=== PATIENT | female | born 1945 | race American Indian/Alaskan Native ===

== ENCOUNTER 2017-02-27 20:26 | Emergency (ER) | payer OTHER ==
[~2017-02-27] VITALS: Ht 152.4 cm; Wt 59.0 kg
[~2017-02-27 20:26] MED LIST: AMLO10TA2 PO; ASPI81TA2 PO; DONE10TA44 PO; LOSA100T15 PO; LOVA20TA2 PO; OMEP20CA10 PO
--- NOTE | 2017-02-27 20:35 | NUR ---
To bed 5 a 72 yo female bibself/grandson with c/o of chest palpitations x2 months, worse today. Per patient she is having palpitation as soon as she lies down, but goes away when she gets up. Patient also reported of feeling like there are "ants crawling in her head." Denies nausea, vomiting. Patient is aaox4, no s/s of acute distress at this time. VSS. Gowned. Placed on director of cardiac cath lab. Awaiting for er md mary.
--- NOTE | 2017-02-27 20:48 | NUR ---
laboratory equipment cleaner at bedside.
--- NOTE | 2017-02-27 20:50 | NUR ---
started a sline lock on the lfa g18.
[2017-02-27 20:54] LABS: BASOPHILS # (AUTO) 0.2 /CMM (0.0-0.2); BASOPHILS % (AUTO) 3.4 % (0.0-2.0); EOSINOPHILS # (AUTO) 0.1 /CMM (0.0-0.7); HEMATOCRIT 37 % (33-45); LYMPHOCYTES % (AUTO) 28.6 % (20.0-44.0); MEAN CORPUSCULAR HEMOGLOBIN 27 PG (26.0-33.0); MEAN CORPUSCULAR HGB CONC 33 g/dl (31.0-36.0); MEAN CORPUSCULAR VOLUME 82 fL (82-100); MONOCYTES # (AUTO) 0.9 /CMM (0.1-1.30); MONOCYTES % (AUTO) 13.3 % (2.0-12.0); NEUTROPHILS # (AUTO) 3.8 /CMM (1.8-8.9); NEUTROPHILS % (AUTO) 52.7 % (43.0-81.0); PLATELET COUNT (AUTO) 315 /CMM (150-450); RDW COEFFICIENT OF VARIATION 12.8 (11.5-15.0); RED BLOOD CELL COUNT(AUTO) 4.46 MIL/uL (4.0-5.2)
[2017-02-27 21:04] LABS: CALCIUM, SERUM 8.8 mg/dL (8.5-10.1); CARBON DIOXIDE 28 mmol/L (21-32); CHLORIDE 95 mmol/L (98-107); CREATININE 0.7 mg/dL (0.6-1.3); GLUCOSE 118 mg/dL (74-106); POTASSIUM 3.9 mmol/L (3.5-5.1); SODIUM SERUM 129 mmol/L (136-145); UREA NITROGEN, BLOOD 16 mg/dL (7-18)
[2017-02-27 21:08] LABS: INR 0.96 (0.87-1.13)
[2017-02-27 21:10] LABS: ALANINE AMINOTRANSFERASE 31 U/L (12-78); ALBUMIN 3.4 g/dL (3.4-5.0); ALKALINE PHOSPHATASE 114 U/L (46-116); ASPARTATE AMINOTRANSFERASE 23 U/L (15-37); BILIRUBIN,DIRECT 0.1 mg/dL (0.0-0.2); BILIRUBIN,TOTAL 0.2 mg/dL (0.2-1.0); TOTAL PROTEIN, SERUM 7.6 g/dL (6.4-8.2)
[2017-02-27 21:11] LABS: TROPONIN I < 0.017 ng/mL (0.00-0.056)
--- NOTE | 2017-02-27 22:54 | NUR ---
Dr Jones at bedside for discharge instructions. IV removed. Catheter intact and site benign. Pressure and 4x4 applied to site. No bleeding noted. Patient discharged to home in stable condition. Written and verbal after care instructions given. Patient verbalizes understanding of instruction. Patient wheeled to car, accompanied by family.
[2017-02-27 22:56] VITALS: BP 147/67
== END 2017-02-27 22:50 | disposition home or self-care (01) ==
LOC: ER 20:28
DX: R00.2 Palpitations (principal); E87.1 Hypo-osmolality and hyponatremia; I25.10 Atherosclerotic heart disease of native coronary artery without angina pectoris; I45.10 Unspecified right bundle-branch block; I10 Essential (primary) hypertension; Z79.82 Long term (current) use of aspirin; Z95.5 Presence of coronary angioplasty implant and graft
CPT/HCPCS: 36415; 71010-TC; 80048-TC; 80076-TC; 84443-TC; 84484-TC; 85025-TC; 85730-TC; A4606; Z7610